=== PATIENT | male | born 1980 | race Two or more races ===

== ENCOUNTER 2020-09-16 17:23 | Emergency (ER) | payer OTHER, SELFPAY ==
[2020-09-16 17:47] VITALS: BP 138/79; PULSE 96; RESP 16; TEMP 36.5; O2SAT 98; BMI 29.6
--- NOTE | 2020-09-16 17:51 | W.ED.UPPEXIN ---
HPI - Extremity Injury (Upper) General: Chief Complaint: Wound/Laceration Stated Complaint: L.Thumb Lac Time Seen by Provider: 09/16/20 17:48 History of Present Illness: HPI narrative: 39-year-old male patient comes in today with injury to the dorsal left thumb. Patient was fixing a dinner and excellently cut his back of his left thumb. Patient has normal range of motion of the hand and digit. Patient denies any other concerns. Patient is Amharic-speaking and his friend is interpreting. Review of Systems General: Reports: 10 or more systems reviewed and unremarkable except in HPI and below Skin/Breast: Reports: other (Laceration left dorsal thumb) Physical Exam Const: COMMON NORMALS: no acute distress and patient oriented x3 GENERAL APPEARANCE: cooperative HENMT: COMMON NORMALS: normocephalic and Normal external nose present HEAD & SCALP: normal to inspection and normocephalic NOSE: Normal external nose present MOUTH: Normal oral and palatal mucosa present Eye: GENERAL EYE: appearance normal, both eyes and all related structures Neck/C-Spine: COMMON NORMALS: full ROM Chest: COMMONS NORMALS: normal inspection of the chest Resp: COMMON NORMALS: normal respiratory effort EFFORT & INSPECTION: Yes able to speak in complete sentences Cardio: COMMON NORMALS: regular rate and regular rhythm RATE: regular rate RHYTHM: regular rhythm GI: COMMON NORMALS: non-tender Back/Pelvis: COMMON NORMALS: thoracic and lumbar spine normal to inspection Extremity: COMMON NORMALS: normal to inspection Neuro: COMMON NORMALS: patient oriented x3 and moves all extremities Psych: COMMON NORMALS: mental status grossly normal and cooperative Skin: NARRATIVE SKIN EXAM: 2-1/2 cm laceration to the dorsal left thumb. Normal range of motion is noted. Normal cap refill distally. Procedures Laceration Laceration 1: Site: hand Side (If applicable): left Size (cm): 2.5 Description: linear Depth: simple, single layer Local Anesthetic: lidocaine 1% Amount of anesthesia used (mL): 2 Pre-repair: wound explored Skin layer closed with: nylon Size (cm): 4-0 Number of sutures: 5 Course Vital Signs: Vital signs: Vital Signs Temperature 97.7 F 09/16/20 17:47 Pulse Rate 96 09/16/20 17:47 Respiratory Rate 16 09/16/20 17:47 Blood Pressure 138/79 09/16/20 17:47 Pulse Oximetry 98 07/13/21 17:47 MDM - Extremity Injury (Upper) MDM Narrative: Medical decision making narrative: Patient comes in for injury to the left dorsal thumb. Patient has good range of motion of the thumb. Patient does have some bleeding that is controlled with pressure. Examination of wound was performed with tourniquet no sign of tendon injury or fracture. Differential diagnosis includes not limited to laceration, foreign body, tendon injury. No sign of foreign body or tendon injury was noted. Wound was repaired with 5 stitches. Patient was recommended to have the sutures removed in 7 to 10 days. Patient reported understanding of care plan and need for follow-up. Discharge Plan Discharge Patient Disposition: Home Clinical Impression: Laceration Condition: Stable Prescriptions: No Action No Known Home Medications RF: 0 Discharge Orders: Discharge ED (Routine); Ordered 09/16/20 Ordered By: Cal Weiss Discharge Diet: Usual diet Discharge Activity: Increase activity as tolerated Patient Instructions: Suture Care (ED), Opioid Safety Activity Restrictions/Additional Instructions: Keep wound clean and dry. It is especially important to keep the wound clean and dry for the next 48 hours. After that you can gently wash the wound with warm soap and water. Dry the wound thoroughly and apply a clean dressing. Stitches need to come out in 7 to 10 days. Follow-up with the primary care provider or you may return to the ED to have the sutures removed. Monitor site for signs of infection such as warmth, swelling, increasing pain. If you notice any of these signs you may need antibiotic for treatment. Mantenga la herida limpia y seca. Es especialmente importante mantener la herida limpia y seca addison las pr?ximas 48 horas. Despu?s de eso, puede evangelista suavemente la herida con agua tibia y jab?n. Seque carly la herida y aplique un ap?sito limpio. Los puntos deben salir en 7 a 10 d?as. Maureen un seguimiento con el proveedor de atenci?n primaria o puede regresar al servicio de urgencias para que le quiten las suturas. Monitoree el sitio para detectar signos de infecci?n nohemi calor, hinchaz?n o aumento del dolor. Si nota alguno de estos signos, es posible que necesite antibi?ticos para el tratamiento. Coding Level of Care Code ED [employer]
--- NOTE | 2020-09-16 18:48 | PC.NURSE ---
wound cleansed per W Weiss and non stick telfa secured with pressure dressing after sutures. I reviewed wound care and f/u with patient and friend
== END 2020-09-16 18:35 | disposition home or self-care (01) ==
PROVIDERS: Emergency Provider Nurse Practitioner Family
DX: S61.012A Laceration without foreign body of left thumb without damage to nail, initial encounter (principal); W45.8XXA Other foreign body or object entering through skin, initial encounter
CPT/HCPCS: 12001; 99281